=== PATIENT | female | born 1985 | race Caucasian/White ===

== ENCOUNTER 2016-10-15 19:40 | Emergency (ER) | payer BC ==
--- NOTE | 2016-10-15 19:55 | UC ---
Throat Pain/Nasal Colin HPI - HPI Summary HPI Summary: 31 YEAR OLD FEMALE PRESENTS WITH SORE THROAT. - History of Current Complaint Stated Complaint: SORE THROAT Time Seen by Provider: 10/15/16 19:55 Onset/Duration: Sudden Onset Severity: Moderate Pain Scale Used: 0-10 Numeric - 5 Cough: Nonproductive - Allergies/Home Medications Allergies/Adverse Reactions: Allergies Allergy/AdvReac Type Severity Reaction Status Date / Time Sulfa Antibiotics Allergy Unknown Hives Verified 10/15/16 20:19 Home Medications: Home Medications Ibuprofen TAB* [Motrin TAB* 600 MG] 600 mg PO Q6H PRN 10/15/16 [History Confirmed 10/15/16] PMH/Surg Hx/FS Hx/Imm Hx Previously Healthy: Yes Review of Systems Constitutional: Negative Skin: Negative Eyes: Negative ENT: Sore Throat, Nasal Discharge, Sinus Congestion Respiratory: Negative Cardiovascular: Negative Gastrointestinal: Negative Genitourinary: Negative Motor: Negative Neurovascular: Negative Musculoskeletal: Negative Neurological: Negative Psychological: Negative All Other Systems Reviewed And Are Negative: Yes Physical Exam Triage Information Reviewed: Yes Eye Exam: Normal ENT: Positive: Pharyngeal erythema, Nasal congestion, Nasal drainage Dental Exam: Normal Neck exam: Normal Neck: Positive: 1 Respiratory Exam: Normal Cardiovascular Exam: Normal Abdominal Exam: Normal Musculoskeletal Exam: Normal Neurological Exam: Normal Psychological Exam: Normal Skin Exam: Normal Throat Pain/Nasal Course/Dx - Differential Dx/Diagnosis Provider Diagnoses: SORE THROAT. PHARYNGITIS Discharge - Discharge Plan Condition: Stable Disposition: HOME Prescriptions: Amoxicillin PO (*) [Amoxicillin 500 MG CAP*] 500 mg PO TID #30 cap LoraTADine TAB(NF) [Claritin 10 MG TAB(NF)] 10 mg PO DAILY #30 tab Magic M W2 Ced/Maal/Nyst/Lido* 15 ml SWISH SPIT QID #120 ml Methylprednisolone [Medrol Dosepak 4 MG*] 4 mg PO .SEE MORENO INSTRUCTION #21 tab Patient Education Materials: Pharyngitis (ED), Strep Throat (ED) Referrals: Rosa Abad MD [Primary Care Provider] -
[2016-10-15 20:25] VITALS: BP 122/77
[2016-10-15] MEDS ORDERED: Amoxicillin/Clavulanate TAB* 875 MG PO ONE (20:48)
[2016-10-15] MEDS ORDERED: Lidocaine 2% VISCOUS* 15 ML UDC PO ONE (20:50)
[2016-10-15] MEDS ORDERED: Amoxicillin PO (*) 500 MG CAP PO ONE (21:07)
== END 2016-10-15 21:17 | disposition home or self-care (01) ==
LOC: UCCORT 19:40
DX: J02.9 Acute pharyngitis, unspecified (principal); R09.81 Nasal congestion; Z88.2 Allergy status to sulfonamides
CPT/HCPCS: 99202; A9270-GY; G0463

== ENCOUNTER 2017-03-03 07:17 | Emergency (ER) | payer BC ==
[2017-03-03 07:33] VITALS: BP 132/81
--- NOTE | 2017-03-03 07:46 | UC ---
Throat Pain/Nasal Colin HPI - HPI Summary HPI Summary: 31 yo female with sore throat x 3 days feverish mild TRIMBLE - History of Current Complaint Chief Complaint: UCGeneralIllness Stated Complaint: SORE THROAT Time Seen by Provider: 03/03/17 07:23 Hx Obtained From: Patient Hx Last Menstrual Period: 02/05/17 Onset/Duration: Gradual Onset, Lasting Days Severity: Moderate Pain Intensity: 4 Pain Scale Used: 0-10 Numeric - Allergies/Home Medications Allergies/Adverse Reactions: Allergies Allergy/AdvReac Type Severity Reaction Status Date / Time Sulfa Antibiotics Allergy Unknown Hives Verified 03/03/17 07:33 PMH/Surg Hx/FS Hx/Imm Hx Previously Healthy: Yes - Surgical History Surgical History: Yes Surgery Procedure, Year, and Place: C-SECTIONS 3. TUBAL LIGATION - Family History Known Family History: Positive: Hypertension Negative: Cardiac Disease, Diabetes - Social History Alcohol Use: None Substance Use Type: None Smoking Status (MU): Never Smoked Tobacco - Immunization History Most Recent Influenza Vaccination: not current Review of Systems Constitutional: Fever Skin: Negative Eyes: Negative ENT: Sore Throat Respiratory: Negative Cardiovascular: Negative Gastrointestinal: Negative Genitourinary: Negative Motor: Negative Neurovascular: Negative Musculoskeletal: Negative Neurological: Negative Psychological: Negative Is Patient Immunocompromised?: No All Other Systems Reviewed And Are Negative: Yes Physical Exam Triage Information Reviewed: Yes Appearance: Well-Appearing, No Pain Distress, Well-Nourished Vital Signs: Initial Vital Signs Temp 98.6 F 03/03/17 07:28 Pulse 83 03/03/17 07:28 Resp 18 03/03/17 07:28 BP 132/81 03/03/17 07:28 Pulse Ox 100 03/03/17 07:28 Vital Signs Reviewed: Yes Eyes: Positive: Conjunctiva Clear ENT: Positive: Hearing grossly normal, Pharyngeal erythema, TMs normal, Uvula midline. Negative: Nasal congestion, Nasal drainage, Tonsillar swelling, Tonsillar exudate, Trismus, Muffled voice, Hoarse voice, Dental tenderness, Sinus tenderness Dental Exam: Normal Neck: Positive: Supple, Nontender, Enlarged Nodes @ - ant cerv Respiratory: Positive: Lungs clear, Normal breath sounds, No respiratory distress Cardiovascular: Positive: RRR, No Murmur Musculoskeletal: Positive: ROM Intact, No Edema Neurological: Positive: Alert Psychological: Positive: Normal Response To Family Skin Exam: Normal Diagnostics - Laboratory Diagnostic Studies Completed/Ordered: strep (+) Throat Pain/Nasal Course/Dx - Differential Dx/Diagnosis Provider Diagnoses: strep throat Discharge - Discharge Plan Condition: Stable Disposition: HOME Prescriptions: Amoxicillin PO (*) [Amoxicillin 875 MG (*)] 875 mg PO BID #20 tab Patient Education Materials: Strep Throat (ED) Referrals: Rosa Abad MD [Primary Care Provider] - 3 Days (if not completely better) Additional Instructions: rest tylenol or advil if needed recheck for worsening symptoms
== END 2017-03-03 07:52 | disposition home or self-care (01) ==
LOC: UCCORT 07:17
DX: J02.0 Streptococcal pharyngitis (principal); Z88.2 Allergy status to sulfonamides
CPT/HCPCS: 87651; 99212; G0463

== ENCOUNTER 2017-07-04 12:18 | Emergency (ER) | payer BC ==
[2017-07-04 13:10] VITALS: BP 104/79
--- NOTE | 2017-07-04 13:28 | ED ---
Respiratory - HPI Summary HPI Summary: 32 yr old female with the complaint of coughing. Onset a week ago. The patient has been coughing a lot, productive of yellow sputum, and she is also complaining of ear itching as well. denies SOB. No other complaints. - History of Current Complaint Chief Complaint: UCRespiratory Stated Complaint: COUGH Time Seen by Provider: 07/04/17 13:10 Pain Intensity: 0 - Allergy/Home Medications Allergies/Adverse Reactions: Allergies Allergy/AdvReac Type Severity Reaction Status Date / Time Sulfa (Sulfonamide Allergy Hives Verified 07/04/17 13:06 Antibiotics) Home Medications: Home Medications Loratadine [Claritin] 10 mg PO DAILY 07/04/17 [History Confirmed 07/04/17] guaiFENesin ER TAB [Mucinex*] 600 mg PO BID 07/04/17 [History Confirmed 07/04/17 ] PMH/Surg Hx/FS Hx/Imm Hx - Surgical History Surgery Procedure, Year, and Place: C-SECTIONS 3. TUBAL LIGATION Infectious Disease History: No Infectious Disease History: Denies: History Other Infectious Disease, Traveled Outside the [place] in Last 30 Days - Family History Known Family History: Positive: Hypertension Negative: Cardiac Disease, Diabetes - Social History Alcohol Use: None Substance Use Type: Reports: None Smoking Status (MU): Never Smoked Tobacco Review of Systems Constitutional: Negative Positive: Ear Ache, Nasal Discharge Positive: Cough All Other Systems Reviewed And Are Negative: Yes Physical Exam Triage Information Reviewed: Yes Vital Signs On Initial Exam: Initial Vitals Temp Pulse Resp BP Pulse Ox 97.1 F 64 15 104/79 98 07/04/17 13:03 07/04/17 13:03 07/04/17 13:03 07/04/17 13:03 07/04/17 13:03 Vital Signs Reviewed: Yes Appearance: Positive: Well-Appearing, No Pain Distress Skin: Positive: Warm, Skin Color Reflects Adequate Perfusion Eyes: Positive: EOMI ENT: Positive: Normal ENT inspection, Pharynx normal, TM red - left with small fluid Respiratory/Lung Sounds: Positive: Clear to Auscultation, Breath Sounds Present Cardiovascular: Positive: RRR. Negative: Murmur Abdomen Description: Positive: Nontender Musculoskeletal: Positive: Strength/ROM Intact Neurological: Positive: Sensory/Motor Intact, Alert, Oriented to Person Place, Time, CN Intact II-III Psychiatric: Positive: Normal - Maria T Coma Scale Best Eye Response: 4 - Spontaneous Best Motor Response: 6 - Obeys Commands Best Verbal Response: 5 - Oriented Coma Scale Total: 15 Diagnostics - Vital Signs Vital Signs Temp Pulse Resp BP Pulse Ox 07/04/17 13:03 97.1 F 64 15 104/79 98 - Laboratory Lab Statement: Any lab studies that have been ordered have been reviewed, and results considered in the medical decision making process. Disposition - Course Course Of Treatment: 32 yr old with coughing and left OM. Rx with zithromax. - Diagnoses Provider Diagnoses: Otitis media, Acute bronchitis Discharge - Sign-Out/Discharge Documenting (check all that apply): Discharge/Admit/Transfer - Discharge Plan Condition: Good Disposition: HOME Prescriptions: Azithromycin TAB* [Zithromax TAB (Z-MORENO) 250 mg #6 tabs] 2 tab PO .TODAY, THEN 1 DAILY #1 moreno Patient Education Materials: Ear Infection (ED), Acute Bronchitis (ED) Referrals: Rosa Abad MD [Primary Care Provider] - 2 Days - Billing Disposition and Condition Condition: GOOD Disposition: HOME
== END 2017-07-04 13:29 | disposition home or self-care (01) ==
LOC: UCCORT 12:18
DX: H66.92 Otitis media, unspecified, left ear (principal); J20.9 Acute bronchitis, unspecified; Z88.8 Allergy status to other drugs, medicaments and biological substances
CPT/HCPCS: 99212; G0463

== ENCOUNTER 2018-04-01 17:42 | Emergency (ER) | payer BC ==
[2018-04-01 18:01] VITALS: BP 117/89
--- NOTE | 2018-04-01 18:18 | UC ---
General HPI - HPI Summary HPI Summary: HEAD COLD FOR 3 DAYS. PAST 2 DAYS L EYE WITH REDNESS AND DRAINAGE. NO EYE PAIN, INJURY OR VISUAL LOSS. NO CONTACT USE. - History of Current Complaint Chief Complaint: [place] Stated Complaint: PINK EYE Time Seen by Provider: 04/01/18 18:13 Hx Obtained From: Patient Hx Last Menstrual Period: 07/03/17 Onset/Duration: Gradual Onset Timing: Constant Pain Intensity: 2 Associated Signs & Symptoms: Negative: Fever, Headache - Allergy/Home Medications Allergies/Adverse Reactions: Allergies Allergy/AdvReac Type Severity Reaction Status Date / Time Sulfa (Sulfonamide Allergy Hives Verified 07/04/17 13:06 Antibiotics) PMH/Surg Hx/FS Hx/Imm Hx Previously Healthy: Yes - Surgical History Surgical History: Yes Surgery Procedure, Year, and Place: C-SECTIONS 3. TUBAL LIGATION - Family History Known Family History: Positive: Hypertension Negative: Cardiac Disease, Diabetes - Social History Alcohol Use: None Substance Use Type: None Smoking Status (MU): Never Smoked Tobacco - Immunization History Most Recent Influenza Vaccination: not current Review of Systems All Other Systems Reviewed And Are Negative: Yes Constitutional: Positive: Negative Skin: Positive: Negative Eyes: Negative: Blurred Vision, Diplopia, Photophobia ENT: Positive: Negative Respiratory: Positive: Negative Cardiovascular: Positive: Negative Gastrointestinal: Positive: Negative Genitourinary: Positive: Negative Motor: Positive: Negative Neurovascular: Positive: Negative Musculoskeletal: Positive: Negative Neurological: Positive: Negative Psychological: Positive: Negative Physical Exam Triage Information Reviewed: Yes Appearance: Well-Appearing Vital Signs: Initial Vital Signs Temp 98.7 F 04/01/18 17:57 Pulse 83 04/01/18 17:57 Resp 16 04/01/18 17:57 BP 117/89 04/01/18 17:57 Pulse Ox 100 04/01/18 17:57 Vital Signs Reviewed: Yes Eyes: Positive: Other: - NO PERIORBITAL EDEMA OR RASH. NO AURICULAR ADENOPATHY. CONJUNCTIVA OD CLEAR AND OS INJECTED. GREEN EXUDATE OS. PERRL, EOMI. AC'S CLEAR. NO FB'S. ENT: Positive: Pharynx normal, TMs normal. Negative: Nasal drainage Neck: Positive: Supple, Nontender, No Lymphadenopathy Respiratory: Positive: Lungs clear, Normal breath sounds Cardiovascular: Positive: RRR, No Murmur Abdomen Description: Positive: Nontender, No Organomegaly, Soft Bowel Sounds: Positive: Present Musculoskeletal: Positive: ROM Intact Neurological: Positive: Alert Psychological: Positive: Age Appropriate Behavior Skin Exam: Normal Course/Dx - Diagnoses Provider Diagnosis: Conjunctivitis Discharge - Sign-Out/Discharge Documenting (check all that apply): Patient Departure All imaging exams completed and their final reports reviewed: No Studies - Discharge Plan Condition: Stable Disposition: HOME Prescriptions: Erythromycin OPTH OINT* [Erythromycin 0.5% OPTH OINT*] 1 applic LEFT EYE TID 7 Days #1 ophth.oint Patient Education Materials: Conjunctivitis (ED) Referrals: [facility] [Medical Doctor] - Additional Instructions: FOLLOW UP WITH YOUR PCP AT [facility] IF NOT BETTER IN 5-7 DAYS OR SOONER IF WORSE. - Billing Disposition and Condition Condition: STABLE Disposition: Home
== END 2018-04-01 18:28 | disposition home or self-care (01) ==
LOC: UCCORT 17:42
DX: H10.9 Unspecified conjunctivitis (principal); Z88.2 Allergy status to sulfonamides
CPT/HCPCS: 99212; G0463

== ENCOUNTER 2018-06-16 07:52 | Emergency (ER) | payer BC, MEDICAID ==
[2018-06-16 08:09] VITALS: BP 112/71
--- NOTE | 2018-06-16 08:23 | UC ---
Back Pain HPI - HPI Summary HPI Summary: pt c/o sharp pains to R mid back since yesterday am. describes as episodic and none now. worsens with movement and relief by lying flat on back. no injury, cough, sob, abdominal pain or urinary discomfort. no correlation with foods or meals. denies calf pain, calf swelling, lng travel, BCP use and does not smoke. took 2 otc aleve this am and yesterday but feels it is not helpful. - History of Current Complaint Chief Complaint: UCBackPain Stated Complaint: RIGHT SIDE BACK PAIN Time Seen by Provider: 06/16/18 08:06 Hx Obtained From: Patient Hx Last Menstrual Period: 06/02/18 ?: No Timing: Intermittent Pain Intensity: 2 Character: Sharp Aggravating Factor(s): Movement Associated Signs And Symptoms: Negative: Fever, Weakness, Numbness, Tingling, Abdominal Pain, Bladder Incontinence, Bowel Incontinence - Risk Factors AAA Risk Factors: Negative TAD Risk Factors: Negative Cauda Equina Risk Factors: Negative Epidural Abscess Risk Factors: Negative - Allergies/Home Medications Allergies/Adverse Reactions: Allergies Allergy/AdvReac Type Severity Reaction Status Date / Time Sulfa (Sulfonamide Allergy Hives Verified 06/16/18 08:07 Antibiotics) PMH/Surg Hx/FS Hx/Imm Hx Previously Healthy: Yes - Surgical History Surgical History: Yes Surgery Procedure, Year, and Place: C-SECTIONS 3. TUBAL LIGATION - Family History Known Family History: Positive: Hypertension Negative: Cardiac Disease, Diabetes - Social History Alcohol Use: None Substance Use Type: None Smoking Status (MU): Never Smoked Tobacco - Immunization History Most Recent Influenza Vaccination: not current Review of Systems All Other Systems Reviewed And Are Negative: Yes Constitutional: Negative: Fever Skin: Negative: Rash Respiratory: Negative: Shortness Of Breath, Cough Cardiovascular: Negative: Palpitations, Chest Pain Gastrointestinal: Negative: Abdominal Pain, Vomiting, Diarrhea, Nausea Genitourinary: Negative: Dysuria, Hematuria, Frequency, Urgency Neurological: Negative: Weakness, Paresthesia, Numbness Physical Exam Triage Information Reviewed: Yes Appearance: Well-Appearing Vital Signs: Initial Vital Signs Temp 97.5 F 06/16/18 08:03 Pulse 76 06/16/18 08:03 Resp 15 06/16/18 08:03 BP 112/71 06/16/18 08:03 Pulse Ox 100 06/16/18 08:03 Vital Signs Reviewed: Yes Eyes: Positive: Conjunctiva Clear ENT: Positive: Normal ENT inspection Neck: Positive: Supple, Nontender, No Lymphadenopathy, Other: - c-spine non tender Respiratory: Positive: Chest non-tender, Lungs clear, Normal breath sounds, No respiratory distress Cardiovascular: Positive: RRR, No Murmur Abdomen Description: Positive: Nontender, No Organomegaly, Soft. Negative: CVA Tenderness (R), CVA Tenderness (L), Distended, Guarding Bowel Sounds: Positive: Present Musculoskeletal: Positive: Other: - Back: spine is without deformity or tenderness. ROM is intact but lateral bending reproduces the pain. Full flexion reveals mm spasm R midback. Extremities have full s/v/m function. Normal steady gait. Neurological: Positive: Alert Psychological: Positive: Age Appropriate Behavior Skin Exam: Normal Skin: Negative: Rashes Diagnostics - Radiology No standard instances Radiology Interpretation Completed By: Radiologist - MPRESSION: 1. NO EVIDENCE FOR RENAL CALCULI OR HYDRONEPHROSIS. 2. CHOLELITHIASIS WITHOUT EVIDENCE FOR ACUTE CHOLECYSTITIS. 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 4. MILDLY ENLARGED RETROVERTED UTERUS. Back Pain Course/Dx - Course Course Of Treatment: DIAGNOSTIC: trace protein, blood, leukocytes. Culture is pending. - Differential Dx/Diagnosis Differential Diagnosis/HQI/PQRI: Other - NON TOXIC. NO ACUTE ABDOMEN. NO RENAL STONES SEEN. INCIDENTAL URACHAL ANOMOLY. GALLSTONES WITHOUT INFLAMMATION WHICH MAY BE CAUSING THE PAIN OR IT IS MUSCULOSKELETAL. WILL REFER BACK TO PCP NEEDED, LOCAL SURGEY PER PT REQUEST AND UROLOGY. Provider Diagnosis: Back pain, Gallstones without obstruction of gallbladder, Urachal anomaly Discharge - Sign-Out/Discharge Documenting (check all that apply): Patient Departure All imaging exams completed and their final reports reviewed: Yes - Discharge Plan Condition: Stable Disposition: HOME Prescriptions: Cyclobenzaprine TAB* [Flexeril 10 MG TAB*] 10 mg PO TID PRN #10 tab PRN Reason: Pain - Back Naproxen [Naprosyn 500 mg tab] 500 mg PO BID PRN 5 Days #10 tablet PRN Reason: Pain - Back Patient Education Materials: Back Pain (ED), Gallstones (ED) Referrals: [facility] [Medical Doctor] - If Needed Jeremi Rmairez [Medical Doctor] - As Soon As Possible Jonel Wren MD [Medical Doctor] - As Soon As Possible Additional Instructions: 1. FOLLOW UP [facility] NEEDED FOR THE BACK PAIN. 2. FOLLOW UP WITH DR RAMIREZ FOR THE GALLSTONES. 3. FOLLOW UP DR WREN FOR THE URACHAL ANOMOLY ON CT. GO TO THE ER FOR ANY WORSENING - Billing Disposition and Condition Condition: STABLE Disposition: Home
== END 2018-06-16 09:57 | disposition home or self-care (01) ==
LOC: UCCORT 07:52
DX: M54.9 Dorsalgia, unspecified (principal); K80.80 Other cholelithiasis without obstruction; Q64.4 Malformation of urachus
CPT/HCPCS: 74176; 81003; 87086; 99212; G0463